=== PATIENT | female | born 1970 | race Caucasian/White ===

== ENCOUNTER 2021-10-10 15:35 | Emergency (ER) | payer OTHER ==
[2021-10-10] MEDS ORDERED: Tetracaine 0.5% PF 4 ML BOT ONE (15:49)
[2021-10-10] MEDS ORDERED: Erythromycin Base 0.5% Ophth Oint 3.5 gm Tube ONE (16:04)
== END 2021-10-10 16:12 | disposition home or self-care (01) ==
LOC: BURERS 15:35
DX: S05.01XA Injury of conjunctiva and corneal abrasion without foreign body, right eye, initial encounter (principal); Z87.891 Personal history of nicotine dependence; W45.8XXA Other foreign body or object entering through skin, initial encounter
CPT/HCPCS: 99283